=== PATIENT | male | born 1975 | race Caucasian/White ===

== ENCOUNTER → 2017-02-19 | Outpatient (CLI) | payer BC ==
--- NOTE | 2017-02-19 11:51 | DIAGNOSTIC IMAGING REPORT ---
[facility] 3 VIEWS HISTORY: pre-MRI screening. COMPARISON: None. FINDINGS: There are no radiopaque foreign bodies identified within the orbits. IMPRESSION: No radiopaque foreign bodies identified within the orbits. Electronically signed by: Lance Hunter M.D. 02/19/2017 11:49 AM Dictated Date/Time: 02/19/2017 11:49 AM
--- NOTE | 2017-02-19 12:43 | DIAGNOSTIC IMAGING REPORT ---
MRI OF THE LUMBAR SPINE WITHOUT CONTRAST CLINICAL HISTORY: Lower back pain. COMPARISON STUDY: No previous studies for comparison. TECHNIQUE: Utilizing a 0.7 Celia open magnet and dedicated coil, multiplanar, multiecho imaging of the lumbar spine was performed without IV contrast. FINDINGS: For purposes of numbering on this exam, the L5-S1 disc space is assigned to image 23 of 25. Alignment of the lumbar spine is anatomic. Vertebral body heights are maintained and there is no suspicious marrow replacement. There is no intracanalicular mass or fluid collection. Conus terminates at the T12-L1 level. Paravertebral soft tissues are unremarkable. L1-2: The central canal and neural foramen are patent. L2-3: The central canal and neural foramen are patent. L3-4: The central canal and neural foramen are patent. L4-5: The central canal and neural foramen are patent. L5-S1: There is disc space narrowing with disc bulge with associated osteophyte formation. There is a superimposed broad-based central disc protrusion that results in moderate narrowing of the central canal and lateral recesses. The neural foramen are patent. There is moderate epidural fat within the lower lumbar and upper sacral canal. IMPRESSION: Disc bulge with superimposed broad-based central disc protrusion at L5-S1 that result in moderate narrowing of the central canal and lateral recesses. Otherwise, unremarkable MRI of the lumbar spine. Electronically signed by: Lance Hunter M.D. 02/19/2017 12:41 PM Dictated Date/Time: 02/19/2017 12:37 PM
== END | disposition home or self-care (01) ==
LOC: C.OPENMRI 10:12
PROVIDERS: ATTEND Family Medicine
DX: M54.5 Low back pain (principal)